=== PATIENT | female | born 1995 | race Two or more races ===

== ENCOUNTER 2022-02-09 00:41 | Emergency (ER) | payer MEDICAID ==
[~2022-02-09] VITALS: Ht 157.5 cm; Wt 99.8 kg
[2022-02-09 00:44] VITALS: BP 117/67
[2022-02-09] MEDS ORDERED: PRED20TA2 PO (04:23)
[2022-02-09] MEDS ORDERED: ALBU108A5 IN (04:23)
== END 2022-02-09 04:47 | disposition home or self-care (01) ==
LOC: ER 00:49
DX: R05.3 Chronic cough (principal); R06.02 Shortness of breath; Z32.02 Encounter for pregnancy test, result negative
CPT/HCPCS: 71045; 81025

== ENCOUNTER 2023-08-12 01:17 | Emergency (ER) | payer MEDICAID ==
[~2023-08-12] VITALS: Ht 157.5 cm; Wt 117.0 kg
[~2023-08-12 01:17] MED LIST: ALBU108A5 IN; PRED20TA2 PO
[2023-08-12] MEDS ORDERED: ALBUTEROL MEDNEB 2.5 mg/3ml NEB NEB ONE (01:45)
[2023-08-12] MEDS ORDERED: IPRATROPIUM BROM 0.5 MG/2.5ML INH SOL NEB ONE (01:45)
[2023-08-12] MEDS ORDERED: PRED20TA2 PO (04:41)
[2023-08-12] MEDS ORDERED: ALBUAER3 IN (04:41)
[2023-08-12] MEDS ORDERED: FLUT110A INH (04:41)
[2023-08-12] MEDS ORDERED: DexAMETHasone SOD PHOS 10MG/1ML VIAL INJ IM ONE (04:45)
[2023-08-12 05:30] VITALS: BP 105/53; PULSE 94; RESP 18; TEMP 98.3; O2SAT 95
== END 2023-08-12 05:11 | disposition home or self-care (01) ==
LOC: ER 01:17
DX: J45.901 Unspecified asthma with (acute) exacerbation (principal)
CPT/HCPCS: 94640; 96372; 99283; J1100; J7644